=== PATIENT | female | born 1980 | race Caucasian/White ===

== ENCOUNTER 2020-03-19 18:02 | Emergency (ER) | payer SELFPAY ==
[2020-03-19] MEDS ORDERED: Ketorolac Tromethamine 60 MG/2 ML VIAL ONE (18:25)
== END 2020-03-19 18:45 | disposition home or self-care (01) ==
LOC: NAV ERS 18:02
DX: M54.6 Pain in thoracic spine (principal); G47.00 Insomnia, unspecified; Z87.891 Personal history of nicotine dependence; Z79.899 Other long term (current) drug therapy
CPT/HCPCS: 96372; 99283; J1885